=== PATIENT | male | born 1985 | race Caucasian/White ===

== ENCOUNTER 2020-10-24 06:54 | Outpatient (NON) | payer OTHER, SELFPAY ==
[2020-10-24 12:29] LABS: Influenza Control Positive
[2020-10-25 16:06] LABS: SARS-CoV-2 RNA PCR Negative
== END 2020-10-24 06:55 ==
LOC: ANHCOVIDDT 07:08
PROVIDERS: PCP Family Medicine; Visit Provider Family Medicine
DX: R11.10 Vomiting, unspecified (principal); R68.83 Chills (without fever); R53.83 Other fatigue; Z20.828 Contact with and (suspected) exposure to other viral communicable diseases
CPT/HCPCS: 87635; 87804; C9803; U0003